=== PATIENT | male | born 1985 | race Caucasian/White ===

== ENCOUNTER 2016-08-29 19:02 | Emergency (ER) | payer SELFPAY ==
[~2016-08-29 19:02] MED LIST: CEPH500C3 PO; IBUP800T23 PO; PROM25SU8 PO; UNK MED
== END 2016-08-29 20:17 | disposition left against medical advice (07) ==
LOC: NEDAMB 19:02
DX: F99 Mental disorder, not otherwise specified (principal)
CPT/HCPCS: 99281

== ENCOUNTER 2017-06-20 12:06 | Emergency (ER) | payer SELFPAY ==
[~2017-06-20] VITALS: Ht 182.9 cm; Wt 70.5 kg
[2017-06-20 12:07] VITALS: BP 125/78; PULSE 99; RESP 18; TEMP 98.3; O2SAT 94
--- NOTE | 2017-06-20 12:25 | PD ---
HPI Chief Complaint: Cold / Flu Symptoms Time Seen by Provider: 12:24 Travel History International Travel<30 days: No Contact w/Intl Traveler<30days: No Traveled to known affect area: No History of Present Illness HPI 32-year-old male presents emergency Department with complaint of body aches, headache, nasal congestion, cough, fever since last night. Reports vomiting times one this morning. MAXIMUM TEMPERATURE of 99.7. Reports his son and his son's mother tested positive for the flu. Denies chest pain, shortness of breath, wheezing. Denies abdominal pain. Symptoms are mild in severity. Has not taken any medications or tried any treatments to the vehicle symptoms. No known aggravating or relieving factors. Reports tobacco use. Denies significant past medical history. No known allergies. Has no other medical complaints. No other modifying factors or associated signs and symptoms. PFSH Past Medical History Anxiety: Yes Depression: Yes Diminished Hearing: No Psychiatric: Yes (PANIC DISORDER) Past Surgical History Abdominal Surgery: Yes (HERNIA REPAIR, INFANT) Social History Alcohol Use: Yes Tobacco Use: Yes Substance Use: Yes (HX OF DRUG USE) Allergies-Medications (Allergen,Severity, Reaction): Coded Allergies: No Known Allergies (Unverified Adverse Reaction, Unknown, 06/20/17) Reported Meds & Prescriptions Reported Meds & Active Scripts Active Reported [Unk Med] Review of Systems Except as stated in HPI: all other systems reviewed are Neg Physical Exam Narrative GENERAL: Well-nourished, well-developed male patient, in no acute distress; afebrile, nontoxic-appearing SKIN: Warm and dry. No rash. HEAD: Atraumatic. Normocephalic. EYES: Pupils equal and round. No scleral icterus. No injection or drainage. ENT: Mucosa pink and moist. No erythema or exudates. No uvular edema. No uvular , palatal, or tonsillar deviation. Airway patent. EARS: Bilateral pinnae and external canals appear within normal limits. Bilateral tympanic membranes without erythema, dullness or perforation. NECK: Trachea midline. No lymphadenopathy. CARDIOVASCULAR: Regular rate and rhythm. No murmur appreciated. RESPIRATORY: No accessory muscle use. Clear to auscultation. Breath sounds equal bilaterally. No retractions or tachypnea. GASTROINTESTINAL: Abdomen soft, non-tender, nondistended. Hepatic and splenic margins not palpable. Bowel sounds are active 4 quadrants. MUSCULOSKELETAL: No obvious deformities. No clubbing. No cyanosis. No edema. NEUROLOGICAL: Awake and alert. Oriented 3. No obvious cranial nerve deficits. Motor grossly within normal limits. Normal speech. Moves all extremities. 5/5 strength to all extremities. PSYCHIATRIC: Appropriate mood and affect; insight and judgment normal. Data Data Last Documented VS Vital Signs Date Time Temp Pulse Resp B/P (MAP) Pulse Ox O2 Delivery O2 Flow Rate FiO2 06/20/17 12:07 98.3 99 18 125/78 (94) 94 Room Air Orders Orders Influenzae A/B Antigen (06/20/17 12:25) Ibuprofen (Motrin) (06/20/17 12:30) MDM Medical Decision Making Medical Screen Exam Complete: Yes Emergency Medical Condition: Yes Medical Record Reviewed: Yes Differential Diagnosis Influenza, viral illness, upper respiratory infection, bronchitis Narrative Course 32-year-old male with cold/flu symptoms. His son and his son's mother were diagnosed with influenza. He is afebrile and nontoxic pain. Reports MAXIMUM TEMPERATURE 99.7. Vomited once this morning. Denies abdominal pain. Physical exam is unremarkable. Influenza and ibuprofen ordered. 1321: Influenza A+. Tamiflu, Zofran and ibuprofen prescribed for home. Discussed viral illness and symptomatic management. Instructed patient to follow up with primary care provider. Patient verbalizes understanding and agreement with treatment plan. Patient is medically cleared and stable for discharge. Discussed reasons to return to the emergency department. Patient agrees with treatment plan. The patients vital signs are stable and the patient is stable for outpatient follow-up and treatment. Patient discharged home, stable and in no acute distress. Diagnosis Primary Impression: Influenza A Referrals: [facility] Primary Care Physician Patient Instructions: General Instructions, Influenza (DC), Influenza (ED) Departure Forms: Tests/Procedures, Work Release Special Instructions: No work until fever free for 24 hours Additional Instructions: Ibuprofen or Tylenol as directed and as needed to reduce fever; may alternate ibuprofen and Tylenol as needed every 3 hours to minimize fever Pzal-[id number]-[id number] cold/flu medications as directed and as needed for symptom management Get plenty of sleep/rest Drink plenty of fluids to prevent dehydration; such as Gatorade, Powerade, Pedialyte [place] diet to encourage nutrition such as crackers, fruit, applesauce, toast, soup etc. Use an air humidifier/turn off ceiling fans Follow-up with your primary care provider within 1 day Return immediately to the emergency department with worsening of symptoms Med/Other Pt SpecificInfo: Prescription(s) given Scripts Ondansetron Odt (Zofran Odt) 4 Mg Tab 4 MG SL Q8HR Y for Nausea/Vomiting, #6 TAB 0 Refills Prov: Ora Adam 06/20/17 Ibuprofen (Ibuprofen) 800 Mg Tab 800 MG PO Q6HR Y for PAIN, #30 TAB 0 Refills Prov: Ora Adam 06/20/17 Oseltamivir (Tamiflu) 75 Mg Cap 75 MG PO BID for Mgmt Viral Infection for 5 Days, #10 CAP 0 Refills Prov: Ora Adam 06/20/17 Disposition: 01 DISCHARGE HOME Condition: Stable Ora Adam Jun 20, 2017 12:25
[2017-06-20] MEDS ORDERED: IBUPROFEN 800 MG TAB PO ONE (12:30)
[2017-06-20] MEDS ORDERED: IBUP1TAB7 PO (13:20)
[2017-06-20] MEDS ORDERED: OSEL75 PO (13:20)
[2017-06-20] MEDS ORDERED: ZOFR4TAB3 SL (13:21)
[2017-06-20 13:45] VITALS: RESP 20
== END 2017-06-20 13:45 | disposition home or self-care (01) ==
LOC: NEPK 12:06
DX: J10.89 Influenza due to other identified influenza virus with other manifestations (principal); F41.8 Other specified anxiety disorders; Z72.0 Tobacco use
CPT/HCPCS: 87804; 99284